=== PATIENT | male | born 1985 | race Caucasian/White ===

== ENCOUNTER 2016-12-09 17:52 | Emergency (ER) | payer OTHER ==
[2016-12-09] MEDS ORDERED: IBUPROFEN 200 MG TAB PO ONE (18:37)
[2016-12-09] MEDS ORDERED: HYDROCODONE/APAP 5/325 TAB PO ONE (18:37)
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
[2016-12-09] MEDS ORDERED: NS 1,000 ML IV ONE (20:31)
[2016-12-09] MEDS ORDERED: IOPAMIDOL (ISOVUE-300) 100 ML BTL ONE (20:40)
[2016-12-09] MEDS ORDERED: OXYCODONE/APAP 5/325MG PREPACK#4 BTL TAKEHOME ONE (21:35)
[2016-12-09 21:45] VITALS: BP 124/73; PULSE 65; RESP 16; TEMP 97.9; O2SAT 95
== END 2016-12-09 21:44 | disposition home or self-care (01) ==
DX: S42.115A Nondisplaced fracture of body of scapula, left shoulder, initial encounter for closed fracture (principal); S40.212A Abrasion of left shoulder, initial encounter; E86.9 Volume depletion, unspecified; V28.0XXA Motorcycle driver injured in noncollision transport accident in nontraffic accident, initial encounter; Y99.8 Other external cause status; Y93.55 Activity, bike riding
CPT/HCPCS: Q9967